=== PATIENT | male | born 1945 | race Caucasian/White ===

== ENCOUNTER 2016-08-22 08:32 | Inpatient (IN) | payer MEDICARE, OTHER ==
[~2016-08-22] VITALS: Ht 182.9 cm; Wt 112.9 kg
--- NOTE | ~2016-08-22 | CON ---
PATIENT'S NAME: KELSEY GILBERT [facility] AGE: 71 Y [address] ROOM: [id number] [place], [place] [address] LOCATION: GPCU ADMIT DATE: 08/22/2016 Consultation DISCHARGE DATE: FAMILY PHYSICIAN: JACQUI RUSSO MD ATTENDING PHYSICIAN: MANJIT ARCHER DATE OF CONSULTATION: 08/22/[address] Archer: Thank you for asking me to see Mr. Gilbert who is a 71-year-old male patient who has end-stage COPD on 4 to 5 L of oxygen per nasal cannula 20/01 and BiPAP at night. He has been evaluated in the past for lung transplant in 2011, at which time he apparently had a completely occluded LAD with retrograde collaterals which was not informed to him apparently. When it was found out that he had a completely occluded LAD, he had a chronic total occlusion, recanalization attempted by Dr. Xie in June. At that time, it was unsuccessful. The patient, however, has never had any chest pain, and there has been no clear evidence that he had a stress test done to see how much of the heart muscle is at risk. His shortness of breath whether it is made worse by his coronary artery disease or not is difficult to say as I do not have an LVEDP measurement in the cath report. The patient since then had felt reasonably well. He did not have any new chest pains. For the past month though he has been getting shortness of breath. For the last couple of days there has been some fever with increasing shortness of breath and this morning intermittently had some upper sternal pain radiating to the left shoulder lasting for few minutes at a time and was recurrent. It completely resolved and went away after he came to the emergency room. There was some nausea. After that he has been doing well. Transplant evaluation in 2011 revealed that he is not a great candidate for transplant because of the presence of esophageal cancer for which he has had radiation and chemotherapy and which is in remission. He unfortunately also had lymphoma which is also treated with radiation and chemotherapy and is in remission now as well. The patient currently has been in functional class 4. This has been getting progressively worse. He does sleep with BiPAP. There is some orthopnea. He denies any lightheadedness but has had syncope x2 secondary to coughing. He denies any palpitations and has had intermittent ankle swelling. The patient has history of hypertension and elevated cholesterol. He denies diabetes, tobacco abuse now, or family history of premature coronary artery disease. PATIENT'S NAME: KELSEY GILBERT [facility] AGE: 71 Y [address] ROOM: [id number] [place], [place] [address] [facility] ADMIT DATE: 08/22/2016 Consultation DISCHARGE DATE: FAMILY PHYSICIAN: JACQUI RUSSO MD ATTENDING PHYSICIAN: MANJIT ARCHER At home, the patient walks around without any walking aid. Outside, he gets around with a scooter. He is currently not on any regular exercise program since 2012 or so. He says it is just too hard to get to the bike to exercise for now. MEDICATIONS: His current list of medications are, 1. Albuterol sulfate 2.5 mg/3 mL q.4 hours. 2. Alprazolam 0.5 mg b.i.d. 3. Aspirin 81 mg once a day. 4. Rosuvastatin 10 mg a day. 5. Prednisone 10 mg 4 tablets a day. 6. Spiriva 1 puff daily. 7. Citalopram 20 mg a day. 8. Furosemide 40 mg 2 twice a day. 9. Lisinopril 20 mg half a tablet a day. 10. Hydroxyzine 25 mg t.i.d. p.r.n. 11. Oxycodone/acetaminophen 1 tablet q.6 hours p.r.n. 12. Ibuprofen 200 mg 4 tablets q.8 hours p.r.n. headache. 13. Multivitamin. 14. Acetazolamide 250 mg a day. 15. Amlodipine 2.5 mg a day. 16. Diphenhydramine 50 mg q.h.s. 17. Ibuprofen/diphenhydramine p.r.n. 18. Acetaminophen/diphenhydramine p.r.n. 19. Incruse Ellipta 1 puff once a day. ALLERGIES: NO KNOWN DRUG ALLERGIES. PAST MEDICAL HISTORY: 1. History of coronary artery disease as mentioned above. 2. Esophageal cancer. 3. Lymphoma. 4. Left lower extremity venous stasis ulcer. 5. End-stage COPD as mentioned earlier. 6. Deafness involving the right ear. SOCIAL HISTORY: The patient is . He denies abusing alcohol now. He quit smoking in 2010. His appetite and weight are stable. Sleep is poor. FAMILY HISTORY: No premature coronary artery disease. PATIENT'S NAME: KELSEY GILBERT [facility] AGE: 71 Y [address] ROOM: [id number] [place], [place] [address] [facility] ADMIT DATE: 08/22/2016 Consultation DISCHARGE DATE: FAMILY PHYSICIAN: JACQUI RUSSO MD ATTENDING PHYSICIAN: MANJIT ARCHER REVIEW OF SYSTEMS: Status post right lower extremity fem-pop bypass. Otherwise, review of systems similar to the above. PHYSICAL EXAMINATION: VITAL SIGNS: On examination, his blood pressure is 98/60; heart rate is in the 70s and 80s, regular; respirations 18; afebrile. He is on for 4 to 6 L of oxygen and his saturations are 94%. He is unfortunately also retaining carbon dioxide by his blood gases. HEENT: Normal. NECK: Supple. HEART: First and second heart sounds are regular. There are no added sounds or murmurs. CHEST: Clear to auscultation. ABDOMEN: Soft and obese. EXTREMITIES: Reveal trace edema. CENTRAL NERVOUS SYSTEM: Intact. ASSESSMENT: A 71-year-old male patient with end-stage COPD with chest pain which could be due to, 1. Pulmonary emboli which has been ruled out. 2. Possible esophageal pain. 3. Possibly secondary to his coronary artery disease. He may possibly be having some decrease in retrograde collateral flow secondary to hormonal changes which could be causing him symptoms. 4. It is also feasible that he became too hypoxic and that was responsible for his chest pains. The other possibility is that he has severe pulmonary hypertension that is causing his chest pains. RECOMMENDATION: 1. At this point, we will plan on checking his echocardiogram and then hold off his amlodipine given his low blood pressure. We will get an echocardiogram and increase his Crestor dose to 20 or 40. Given his coronary artery disease, he should be on a high intensity therapy. 2. Addition of nitrates may be helpful in improving collateral circulation. I am not sure how well the patient will tolerate the nitrates. Again, I appreciate this opportunity to participate in the care of Mr. Gilbert. STEVEN PURCELL MD PATIENT'S NAME: KELSEY GILBERT [facility] AGE: 71 Y [address] ROOM: [id number] [place] [id number] LOCATION: [facility] ADMIT DATE: 08/22/2016 Consultation DISCHARGE DATE: FAMILY PHYSICIAN: JACQUI RUSSO MD ATTENDING PHYSICIAN: MANJIT ARCHER/miguel /[id number] d: 08/23/16 0109 t: 09/03/16 1326, CONSULTATION REPORT
--- NOTE | ~2016-08-22 | ER ---
PATIENT'S NAME: KELSEY HERNÁNDEZ [facility] AGE: 71 Y [address] ROOM: [address] [place] [id number] [facility] ADMIT DATE: 08/22/2016 ER/Outpatient Report DISCHARGE DATE: FAMILY PHYSICIAN: JACQUI RUSSO MD ATTENDING PHYSICIAN: MANJIT ARCHER Time of Arrival: 0832 hours. Time of Evaluation: 0835 hours. IDENTIFICATION: A 71-year-old male. CHIEF COMPLAINT: Shortness of breath. HISTORY OF PRESENT ILLNESS: The patient is a 71-year-old male with a history of steroid dependent and O2 dependent COPD managed by Dr. Russo. The patient also has multiple other comorbid conditions including history of esophageal cancer, lymphoma, coronary artery disease with what sounds like severe stenosis of the LAD that has been unsuccessful as far as stenting per Dr. Xie and he is scheduled to go to [place] to try and have this evaluated. He also had a left lower extremity ulcer and bilateral lower extremity edema. He is not currently getting any chemotherapy and his cancer has been managed by Dr. Ramirez. Over the last several days, he has progressively become more short of breath. His normal O2 requirements of 2 to 3 L per nasal cannula have increased to 4 to 5 L. He does use BiPAP at night. He felt like he had a fever yesterday, although he did not take his temperature. He has a cough, it is nonproductive. He said he always has a cough, this really is unchanged, and he is unable to cough anything up. No other recent illnesses. He was hospitalized in May with acute on chronic hypoxic respiratory failure, COPD, acute on chronic diastolic congestive heart failure, and left leg cellulitis with ulcer. ALLERGIES: NO KNOWN DRUG ALLERGIES. CURRENT MEDICATIONS: He did not bring a medication list with him, but we do have a faxed record from Dr. Xie's office dated June 21 and at that visit medications included; 1. Acetazolamide 250 mg daily. 2. Albuterol nebulizer q.4 hours p.r.n. 3. Allopurinol 300 mg daily. 4. Alprazolam 0.25 mg p.r.n. 5. Aspirin 325 mg daily. PATIENT'S NAME: KELSEY HERNÁNDEZ [facility] AGE: 71 Y [address] ROOM: [id number] [place], [place] [address] LOC[facility]: [facility] ADMIT DATE: 08/22/2016 ER/Outpatient Report DISCHARGE DATE: FAMILY PHYSICIAN: JACQUI RUSSO MD ATTENDING PHYSICIAN: MANJIT ARCHER 6. Benadryl tablets p.r.n. 7. Citalopram 20 mg half tablet daily. 8. Crestor 10 mg daily. 9. Durezol ophthalmic emulsion. 10. Furosemide 40 mg q.a.m. and 20 mg at noon. He already has taken 40 mg today. 11. Hydroxyzine 10 mg p.r.n. 12. Ilevro ophthalmic suspension. 13. Lisinopril 20 mg daily. 14. Mucinex 600 mg b.i.d. p.r.n. 15. Oxycodone 5/325 one to two tablets every 4 to 6 hours as needed. 16. Prednisone 10 mg b.i.d. is what is prescribed, but I believe he told me he has taken 10 mg in the morning and 5 at h.s. 17. ProAir p.r.n. 18. Promethazine. 19. Codeine p.r.n. 20. Spiriva 18 mcg one capsule daily. 21. Symbicort 160/4.5 daily. 22. Vigamox ophthalmic drops. MEDICAL PROBLEMS: Hypertension; COPD, which is steroid and O2 dependent; esophageal carcinoma; atypical lymphocytosis; lung nodules; non-Hodgkin's lymphoma; completed radiation and chemotherapy for the esophageal cancer, managed by Dr. Ramirez; cor pulmonale; chronic diastolic congestive heart failure; history of tobacco abuse, quit in 2011; peripheral vascular disease status post bypass on his right leg in 2012; left leg ulcer; recurrent bronchitis; anxiety; hyperlipidemia; splenomegaly on CT; and history of a thyroid nodule. SOCIAL HISTORY: The patient is , retired, lives here in [place]. Tobacco use, quit in 2011. Alcohol use, denies. Drug use, denies. FAMILY HISTORY: Father secondary to lung cancer. REVIEW OF SYSTEMS: All systems reviewed and negative other than what is noted in the HPI. PHYSICAL EXAMINATION: VITAL SIGNS: Weight 114.2 kg, blood pressure 105/58, pulse 105, respirations 24, temperature 98.5, and saturations 91% on 5 L per nasal cannula. GENERAL: This is a 71-year-old male, who is tachypneic and working to breathe, can speak in just a few word sentences, fatigued, which is answering questions. PATIENT'S NAME: KELSEY HERNÁNDEZ [facility] AGE: 71 Y [address] ROOM: [id number] [place], [place] [address] LOCATION: [facility] ADMIT DATE: 08/22/2016 ER/Outpatient Report DISCHARGE DATE: FAMILY PHYSICIAN: JACQUI RUSSO MD ATTENDING PHYSICIAN: MANJIT ARCHER: Head: Normocephalic and atraumatic. Ears: TMs translucent both ears. Eyes: Pupils equal and reactive to light and accommodation. Extraocular movements intact. Nose: Mucosa pink. No lesions or drainage. Mouth: No lesions. Pharynx benign. NECK: Supple. No lymphadenopathy. No thyromegaly. No JVD. No carotid bruits. LUNGS: Diminished breath sounds throughout. He does have scattered wheezes and rhonchi. HEART: Sinus tachycardia. No murmur, rub, or gallop. ABDOMEN: Bowel sounds present, soft, nondistended, protuberant, and nontender. SKIN: [place], warm, and dry. NEURO: The patient is alert and oriented x4. Cranial nerves II through XII grossly intact. Motor strength 5/5 throughout. Sensation is intact to light touch. The patient does have 1+ lower extremity edema. No calf tenderness. He has chronic venous stasis changes bilaterally. LABORATORY DATA AND X-RAYS: ABGs; pH of 7.35, pCO2 of 50, pO2 of 162, bicarb 27.6, saturations 99%, and arterial lactate 1.3. D-dimer elevated at 1.83. Sodium 141, potassium 3.9, chloride 103, CO2 of 31, BUN 24, creatinine 1.2, and blood sugar 139. Liver enzymes normal. Magnesium 2.2. CPK 43, CK-MB 2.2, ProBNP 393. No previous pro-BNP for comparison. Hemoglobin 12.1, hematocrit 41.3, platelets 148, and white blood cell count 10.8. Previous platelet count was 199 on June 06. White blood cell differential 65% segs and 17% bands. INR 1.0. EKG normal sinus rhythm at 94 beats per minute, no acute ST elevation or depression, nonspecific ST-T wave changes, no previous EKG available at this time for comparison. Chest x-ray, 1 view, mild bibasilar infiltrate, mild increased pulmonary vascularity. CT scan, PE protocol, no PE, no acute cardiopulmonary abnormality, no significant adenopathy in the chest or abdomen. EMERGENCY DEPARTMENT COURSE: The patient's port was accessed. Labs were drawn to include blood cultures. Respiratory viral panel was also obtained, which was negative. Procalcitonin mildly elevated at 0.39. IV fluids were initiated at 100 mL/h. Rocephin 1 gram IV was given, Zithromax 500 mg IV for pneumonia, alprazolam 0.25 mg p.o. for anxiety, Solu-Medrol 125 IV for COPD, and Lasix 40 mg IV for acute congestive heart failure. The patient was placed on BiPAP at 24/5 per his home settings and given an albuterol aerosol treatment. He did not tolerate the BiPAP. His went home to get his own. He refused BiPAP after about 20 minutes here and was taken off. His saturation did remain greater than 90% on O2 per nasal cannula. IMPRESSION AND PLAN: 1. Acute on chronic hypoxic respiratory failure. ER treatment as noted PATIENT'S NAME: KELSEY HERNÁNDEZ [facility] AGE: 71 Y [address] ROOM: [id number] [place] [id number] LOC[facility]: [facility] ADMIT DATE: 08/22/2016 ER/Outpatient Report DISCHARGE DATE: FAMILY PHYSICIAN: JACQUI RUSSO MD ATTENDING PHYSICIAN: MANJIT ARCHER above. The patient will be admitted per Dr. Archer with Dr. Russo consulting. Dr. Russo's advanced practice provider, Ketty Baron, evaluated the patient in the emergency room as well as Dr. Archer. 2. Bibasilar pneumonia. IV antibiotics initiated in the emergency room after cultures were obtained. Respiratory viral panel is negative and the patient will be admitted per Dr. Archer. 3. Bilateral lower extremity edema. 4. Acute on chronic diastolic congestive heart failure. The patient was given 40 mg of IV Lasix. 5. Anxiety. The patient had increasing anxiety here in the ER and was given 0.25 mg p.o. alprazolam. The patient did remain hemodynamically stable throughout his stay here in the emergency room and was discharged to U telemetry at 10:50 a.m. Heart rate at that time 88, O2 saturation 92%, blood pressures ranged from 93/52 to 109/56, and 35 minutes of critical care was provided with this patient. MD ELIEZER BECKWITH/miguel /[id number] d: 08/22/160 t: 08/27/16 0653, OUTPATIENT REPORT
--- NOTE | ~2016-08-22 | CON ---
PATIENT'S NAME: KELSEY HERNÁNDEZ [facility] AGE: 71 Y [address] ROOM: [address] [place] [id number] LOCATION: GPCU ADMIT DATE: 08/23/2016 Consultation DISCHARGE DATE: 08/28/2016 FAMILY PHYSICIAN: Adam Alba MD ATTENDING PHYSICIAN: Kayleigh Alonzo DATE OF CONSULTATION: 08/22/2016 INDICATIONS: Acute on chronic respiratory failure. HISTORY OF PRESENT ILLNESS: This is a 71-year-old male, well known to Dr. Alba, who called this morning through the Answering Service to report increased shortness of breath and fever starting last night. He was sent to the Emergency Room for further evaluation. In the ER Emergency Room, he required BiPAP for about 20 minutes or so, and is now on 4 L nasal cannula at 88%. He reports that he has had progressive shortness of breath over the last three to four weeks, and noted fevers up to 101.8 last night. He denies any chest pain. He reports PND and orthopnea lately. He also has had lower extremities edema; however, feels this has improved some. He denies any lightheadedness. He recently got his [place] boots off, and has wraps on them now. PAST MEDICAL HISTORY: Includes 1. Esophageal cancer, status post radiation and chemotherapy. 2. History of lymphoma. 3. History of lower extremities venous stasis ulcer. 4. COPD chronic obstructive pulmonary disease. 5. Chronic respiratory failure. He normally uses BiPAP at night. 6. CAD coronary artery disease. 7. Cor pulmonale. 8. Chronic systolic heart failure. ALLERGIES: SEE MAR. MEDICATIONS: See MAR. FAMILY HISTORY: PATIENT'S NAME: KELSEY HERNÁNDEZ [facility] AGE: 71 Y [address] ROOM: [id number] [place] [id number] LOCATION: GPCU ADMIT DATE: 08/23/2016 Consultation DISCHARGE DATE: 08/28/2016 FAMILY PHYSICIAN: Adam Alba MD ATTENDING PHYSICIAN: Kayleigh Alonzo The patient denies any history of heart disease or lung disease. SOCIAL HISTORY: Marital Status: The patient is , and lives with his . Habits: He denies alcohol use. He was a former heavy smoker, and quit in 2010. REVIEW OF SYSTEMS: A twelve-point review of systems is negative, except for what is noted in the HPI history of present illness. PHYSICAL EXAMINATION: VITAL SIGNS: Blood pressure was 98/42, pulse was 83, respirations were 22, and temperature was 98.3. He is 88% on 4 L nasal cannula. GENERAL: This is a 71-year-old, well developed, well nourished, and overweight male, who is alert and oriented x3, and appears in no acute distress at the time of the exam. HEENT: Head: Normocephalic and atraumatic. Eyes: Clear. NECK: Supple. No adenopathy. No carotid bruits or JVD jugular venous distention. LUNGS: Decreased breath sounds throughout with a few wheezes, but no rales. HEART: Regular rate and rhythm without murmur, gallop, or rub. ABDOMEN: Soft and nontender and obese. Bowel sounds x4. EXTREMITIES: No cyanosis or clubbing. A +1 lower extremities edema. DIAGNOSTIC DATA: Includes ABG arterial blood gases, which showed a pH of 7.35, pCO2 of 50, pO2 of 162, bicarbonate of 27.6, and lactate of 1.3. Troponin was negative. ProBNP is 393. Sodium was 141, potassium was 3.9, BUN was 24, creatinine was 1.2, and CO2 was 31. WBC of 10.8, hemoglobin of 12.1, hematocrit of 41.3, and platelets of 148. D-dimer was 1.83. Procalcitonin is 0.39. ASSESSMENT: 1. Acute on chronic respiratory failure due to chronic obstructive pulmonary PATIENT'S NAME: KELSEY HERNÁNDEZ [facility] AGE: 71 Y [address] ROOM: [address] [place], [place] [address] LOCATION: GPCU ADMIT DATE: 08/23/2016 Consultation DISCHARGE DATE: 08/28/2016 FAMILY PHYSICIAN: Adam Alba MD ATTENDING PHYSICIAN: Kayleigh Alonzo disease exacerbation. Overall stable respiratory status with nocturnal BiPAP chronically. 2. Chronic obstructive pulmonary disease exacerbation, moderate. Continue IV steroids and antibiotics. 3. Cor pulmonale, slightly decompensated with fluid overload. 4. Coronary artery disease with difficult to treat LAD left anterior descending artery lesion. PLAN: We will continue with IV steroids and antibiotics for now. We will schedule bronchodilator treatments every four hours as well as p.r.n., and follow up on culture results. Would suggest IV diuretics, and follow up on renal panel. He can continue with his own BiPAP machine at his home settings at night as well as as-needed during the day for increased shortness of breath or work of breathing. Thank you for the consult and opportunity to participate in patient's care. LAYLA HARRIS APRN FOR MD NINA HERNANDEZ/modl /[id number] d: 09/09/162104 t: 09/10/16 1631, CONSULTATION REPORT
--- NOTE | ~2016-08-22 | DS ---
PATIENT'S NAME: KELSEY HERNÁNDEZ [facility] AGE: 71 Y [address] ROOM: G6337 [place], [place] [address] LOCATION: GPCU ADMIT DATE: 08/23/2016 Discharge Summary DISCHARGE DATE: 08/28/2016 FAMILY PHYSICIAN: Adam Alba MD ATTENDING PHYSICIAN: Kayleigh Alonzo FINAL DIAGNOSES: 1. Hjnsn-bu-xtuzore hypercapnic hypoxic respiratory failure. 2. New-onset atrial fibrillation, vgcpn-yg-ztgwibl diastolic congestive heart failure. 3. Acute kidney injury, resolved. 4. Stage III chronic kidney disease. 5. Anemia of chronic disease. 6. Coronary artery disease. HISTORY OF PRESENT ILLNESS: For details of admission, please see the history and physical dictated by Dr. Mcmahan and consultation provided by Dr. Alba. In short, the patient presented to the hospital with worsening of his chronic respiratory failure. He was admitted to PCU. LABORATORY DATA: On admit; white blood cell count 10.8, hemoglobin 12.1, hematocrit 41.3, platelet count 148. Most prior to discharge; his hemoglobin was 10.6, hematocrit 35.7, platelet count 181. On admission, he had a left shift with 17% bands. D-dimer on admission was 1.83. His cardiac enzymes were normal. On admission and on the , his cardiac enzymes did bump to 0.08 and 0.083. ABGs on admission; his pH was 7.35, pCO2 of 50, pO2 of 162. Later in the day, on , his pH was 7.22, pCO2 of 100, pO2 of 105. On admission, sodium 141, potassium 3.9, chloride 103, CO2 of 31, BUN 24, creatinine 1.2. His creatinine got as high as 2.1 on , but then most prior to discharge was 1.1. Respiratory panel was negative. Procalcitonin on admission was less than 0.39. Blood cultures were negative. Legionella urine antigen and strep pneumoniae urine antigen were negative. RADIOLOGY STUDIES: On admission, had bibasilar infiltrates and atelectasis. KUB of his abdomen was nonspecific. CTA of his chest done on 08/22/2016 did not show any acute PE. He did not have an acute cardiopulmonary abnormality. Echocardiogram done on 08/23/2016 showed that he had an ejection fraction of 60%, he had moderate concentric left ventricular hypertrophy, has mildly dilated left atrium, and did have tricuspid regurg. His pulmonary pressure was 36 mmHg. HOSPITAL COURSE: The patient was admitted with a diagnosis of acute-on- chronic respiratory failure, was seen in consultation by the Pulmonary Service. He was worked up for the etiology. Blood cultures and respiratory panel were obtained. He was put on BiPAP to help the respiratory failure. He PATIENT'S NAME: KELSEY HERNÁNDEZ [facility] AGE: 71 Y [address] ROOM: G6337 [place], [place] [address] LOCATION: GPCU ADMIT DATE: 08/23/2016 Discharge Summary DISCHARGE DATE: 08/28/2016 FAMILY PHYSICIAN: Adam Alba MD ATTENDING PHYSICIAN: Kayleigh Alonzo was given Lovenox for DVT prophylaxis. He was placed on IV steroids for what was felt to be a COPD exacerbation. It was felt that he did have cor pulmonale, this was monitored closely. He felt significantly better the next day. He did develop atrial fibrillation and Dr. Peterson did see him from a Cardiology standpoint and were able to wean his steroids. Dr. Peterson felt that we needed to try and diurese him and gave him albumin. He had been started on antibiotics, this was limited to Levaquin for a total of five days. His creatinine did jump, so his lisinopril and creatinine were held. It was felt that this was due to him receiving contrast for the CT scan that was done on admission. He did get started on oral Cardizem to help with the atrial fibrillation. He was then put on a taper of prednisone. Dr. Rivera did see him and felt that we should place him on sotalol and that he needed anticoagulation with Coumadin. He did continue to improve. He was placed on a fluid restriction. There was concern about his respiratory failure. He was given a dose of Diamox and given Lasix. Dr. Alba did feel that we needed to make sure that we could get a home BiPAP AVAPS machine. He was about ready to go home but did get into some trouble with CO2 retention and was placed back on the BiPAP. Through Dr. Alba, we were able to get Trilogy device for AVAPS for him to have at home. We did hold him in the hospital until we made sure that this was available. In the mean time, we did work on bringing his INR into a therapeutic range. It was felt that he was stable for discharge and was discharged to home with the following instructions. DISCHARGE INSTRUCTIONS: He is to follow up with Dr. Xie, his equipment maintenance engineer, on Friday09/03/2016 at 2 p.m.; Dr. Frandy Sawyer, his primary provider, on 09/06/2016 at 2 p.m.; and to see Dr. Alba on 09/10/2016. DISCHARGE MEDICATIONS: 1. Albuterol nebulizer every 4 hours as needed. 2. Xanax 0.5 mg twice daily. 3. Ecotrin 81 mg daily. 4. Lipitor 10 mg daily. 5. Prednisone 20 mg daily for 3 days, then 10 mg daily for 4 days, then stop. 6. Spiriva 1 puff inhaled daily. 7. Celexa 20 mg daily. 8. Lasix 80 mg twice daily. 9. Lisinopril 5 mg daily. 10. Hydroxyzine 25 mg 3 times daily. 11. Percocet 5/325 one every 6 hours as needed. 12. Multivitamin daily. 13. Diamox 500 mg daily. 14. Advil PM 2 tablets as needed for insomnia. 15. Incruse Ellipta one puff daily. 16. Diltiazem extended release 120 mg daily. PATIENT'S NAME: KELSEY HERNÁNDEZ [facility] AGE: 71 Y [address] ROOM: [place] [address] [facility] ADMIT DATE: 08/23/2016 Discharge Summary DISCHARGE DATE: 08/28/2016 FAMILY PHYSICIAN: Adam Alba MD ATTENDING PHYSICIAN: Kayleigh Alonzo 17. Guaifenesin 1200 mg twice daily. 18. Isordil 5 mg 3 times daily. 19. Sotalol 40 mg twice daily. 20. Coumadin 5 mg daily. PROGNOSIS: Overall prognosis at discharge was fair. The patient and his did voice understanding. KAYLEIGH ALONZO MD LAW/modl /[id number] d: 09/24/163 t: 09/26/16 1613, DISCHARGE SUMMARY
--- NOTE | ~2016-08-22 | ECHO ---
Transthoracic Echocardiography Report (TTE) Demographics Patient Name KELSEY HERNÁNDEZ Date of Study 08/23/2016 Patient Number [id number] Visit Number [id number] Date of 1945 Room Number G6337 Gender Male Number Age 71 year(s) Referring Kristen Amezcua Carrier Blower Cassy Juarez MD RDCS Physician Interpreting Kristen Amezcua Repack Room Worker Physician Supervising Ordering MD/MLP Physician Nurse Stress Body Shop Manager Conclusions Summary Technically difficult exam. The estimated left ventricular ejection fraction is 60% with normal WM and internal dimensions.Moderate concentric left ventricular hypertrophy. The left atrium is mildly dilated. Mild mitral regurgitation by color Doppler. RHCs are mildly dilated. Increased RA pressures. RV apex is hypokinetic. Mild tricuspid regurgitation by color Doppler.There is mild pulmonary hypertension. The pulmonary pressure (RVSP) is 36 mmHg. Procedure Type of Study TTE procedure:2D Echocardiogram. Procedure Date Date: 08/23/2016 Start: 09:32 AM Study Location: Inpatient Portable Indications:Chest pain. Appropriate Use Criteria: 9 Patient Status: Routine HR: 95 bpm BP: 96/51 mmHg M-Mode/2D Measurements LV Diastolic Dimension: 5.57 cm LV Systolic Dimension: 3.61 cm LV Septum Diastolic: 1.36 cm LV PW Diastolic: 1.39 cm AO Root Dimension: 2.2 cm Cardiac Output: 9.16 l/min AV Cusp Separation: 1.9 cm RV Diastolic Dimension: 3.88 cm LA volume: 87 ml LVOT: 2 cm RV Base: 4.54 cm LVOT VTI: 30.7 cm RV Mid: 2.95 cm LV Stroke volume: 96.4 ml TAPSE: 2.08 cm TDI-S': 16 cm/s Doppler Measurements AV Peak Velocity: 1.91 m/s MV Peak E-Wave: 1.23 m/s AV Peak Gradient: 14.59 mmHg MV Peak A-Wave: 1.01 m/s AV Mean Gradient: 8 mmHg MV E/A Ratio: 1.22 LVOT Peak Velocity: 1.8 m/s MV P1/2t: 51 msec TR Gradient:26.01 mmHg PV Peak Velocity: 1.17 m/s Estimated RAP:10 mmHg PV Peak Gradient: 5.48 mmHg Estimated RVSP: 36 mmHg Estimated PASP: 36.01 mmHg E' Septal Velocity: 0.06 m/s A' Septal Velocity: 0.08 m/s E' Lateral Velocity: 0.08 m/s A' Lateral Velocity: 0.14 m/s Findings Left Ventricle Moderate concentric left ventricular hypertrophy with normal internal dimensions,EF and WM. Right Ventricle Mildly dilated right ventricle.RV apex is hypokinetic. Left Atrium The left atrium is mildly dilated. Right Atrium Normal right atrial size. Increase RA pressures. Mitral Valve Mild mitral regurgitation by color Doppler. Aortic Valve Normal aortic valve structure and function. Tricuspid Valve Mild tricuspid regurgitation by color Doppler. There is mild pulmonary hypertension. The pulmonary pressure (RVSP) is 36 mmHg. Pulmonic Valve Normal pulmonic valve structure and function. Pericardial Effusion No evidence of pericardial effusion. Miscellaneous Visualized portions of the aortic root and ascending aorta appear normal in size. Pleural Effusion No evidence of pleural effusion. Contractility Score LV regional wall motion:(0-Non visualized 1-Normal 2-Hypokinesis 3-Akinesis 4-Dyskinesis 5-Aneurysm) Signature dtt: Goldie Peterson dtd: 08/23/16 0932 Physician Self Edit
--- NOTE | ~2016-08-22 | HP ---
PATIENT'S NAME: KELSEY HERNÁNDEZ [facility] AGE: 71 Y [address] ROOM: [address] [place], [place] [address] [facility] ADMIT DATE: 08/22/2016 History & Physical DISCHARGE DATE: FAMILY PHYSICIAN: JACQUI RUSSO MD ATTENDING PHYSICIAN: MANJIT ARCHER DATE OF SERVICE: CHIEF COMPLAINT: Worsening shortness of breath on exertion and slightly worsening of chronic dry cough and intermittent chest pain at rest. HISTORY OF PRESENT ILLNESS: This is a 71-year-old male who says that roughly about 3 or 4 weeks ago, he has been experiencing a little bit worsening of his chronic usual dry cough and more worsening of his usual exertional dyspnea. For the last 3 days, he has also been experiencing substernal chest pain about 4/10 in intensity, but only occurs at rest. The chest pain is kind of a pressure-like pain and is on and off, only lasts for a few seconds. He will get this kind of chest pain about 3 or 4 times a day for the last 3 days. He has never experienced chest pain before according to the patient. This morning, he also has been feeling some chills and generalized body aches. He has also been having some loose stools since yesterday about 3 episodes of nonbloody and today he has had about 2 episodes of loose stools also nonbloody. At baseline, he has COPD. He uses 4 to 5 liters of oxygen nasal cannula 24/7 and he also uses a BiPAP every night with a setting of 24/4 according to the patient. Chronically, he has exertional dyspnea from his COPD and also chronically has dry cough almost on a daily basis. He denies any recent sick contact or any recent trauma or any travel outside the country. He also denies any palpitation or diaphoresis or syncope or presyncope or nausea or vomiting. REVIEW OF SYSTEMS: As mentioned in the history of present illness. All other system review negative except those mentioned in history of present illness. PAST MEDICAL HISTORY: 1. 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 2. History of coronary artery disease with a 100% occlusion of the LAD according to the patient's daughter and currently being followed by Dr. Xie at [facility]. He has seen Dr. Xie 3 times and 1st time was a consultation where he had a recent echo performed in PATIENT'S NAME: KELSEY HERNÁNDEZ [facility] AGE: 71 Y [address] ROOM: [address] [place], [place] [address] [facility] ADMIT DATE: 08/22/2016 History & Physical DISCHARGE DATE: FAMILY PHYSICIAN: JACQUI RUSSO MD ATTENDING PHYSICIAN: MANJIT ARCHER June 2016 according to the patient at [facility]. He also had 2 cardiac cath attempts back in June and July 2016. At that time, the LAD was 100% occluded and could not do any stents and also could not do any CABG given the patient's underlying poor lung function. The patient is scheduled in the future to see someone in [place], but appointment has not been made yet. 3. History of esophageal cancer status post radiation and chemotherapy and is already cured. Because of the esophageal cancer, the patient is not considered a lung transplant candidate according to the patient and the patient's daughter. 4. History of lymphoma followed by Dr. Ramirez status post chemotherapy and currently is in remission. 5. Left lower extremity venous stasis ulcer, already cured. 6. COPD, on home oxygen 4 to 5 liters nasal cannula 24/7 and at home also uses BiPAP every night, setting 24/4 according to the patient. ALLERGIES: NO KNOWN DRUG ALLERGIES. HOME MEDICATIONS: Currently has been reconciled. SOCIAL HISTORY: The patient was a heavy former cigarette smoker and he quit in 2010. No alcohol. No illegal drug use. FAMILY HISTORY: Father from lung cancer at an advanced age. The patient could not really tell me about his mother's medical problem because he could not remember. PAST SURGICAL HISTORY: Status post bypass of the right lower extremity of the femoral popliteal vein in the past. PHYSICAL EXAMINATION: VITAL SIGNS: At the time of my dictation, temperature 98.3, heart rate 83, respirations 23, blood pressure 120/80, and saturation 91% on 5 liters nasal cannula and pain is 0/10. GENERAL APPEARANCE : Alert and oriented x3. A bit drowsy currently. The patient is a bit drowsy on my examination given that the patient just took Xanax 0.25 mg p.o. x1, but he is still alert and oriented x3. Followed commands and answered questions appropriately. HEENT: Pupils equally round and reactive to light. Extraocular muscles intact. Anicteric sclerae. Nasal turbinates are normal bilaterally. Moist PATIENT'S NAME: KELSEY HERNÁNDEZ [facility] AGE: 71 Y [address] ROOM: [address] [place], [place] [address] [facility] ADMIT DATE: 08/22/2016 History & Physical DISCHARGE DATE: FAMILY PHYSICIAN: JACQUI RUSSO MD ATTENDING PHYSICIAN: MANJIT ARCHER oral mucosa. No oral thrush. No oropharyngeal exudate or erythema. NECK: No JVD. No neck stiffness. No cervical lymphadenopathy. CARDIOVASCULAR: Regular rate and rhythm. Normal S1, S2. No murmur. No rubs. No gallops. RESPIRATORY: Diffuse wheezing with decreased breath sounds diffusely. ABDOMEN: Obese, soft, nontender, nondistended, and normal bowel sounds. No hepatosplenomegaly. EXTREMITIES: He has trace pitting edema in bilateral lower extremities. The left lower extremity slightly more than the right lower extremity. NEUROLOGIC: Grossly nonfocal. SKIN: No ulcer, no rash, no cyanosis. No open sores in bilateral lower extremities. MUSCULOSKELETAL: No joint pain. No muscle pain. Range of motion intact. LABORATORY DATA: ABG performed on 5 liters oxygen nasal cannula showed pH 7.35, pCO2 of 50, PO2 of 162, bicarbonate 107.6, and satting at 99%. Lactic acid 1.3. Troponin less than 0.04. CPK 43, proBNP 393, white blood cell 10.8, hemoglobin 12.1, hematocrit 41.3, MCV 94.1. Platelet 148. Glucose 139, BUN 24, creatinine 1.2. Sodium 141, potassium 3.9, chloride 103, CO2 of 31, calcium 8.4. Total protein 6.5, albumin 3.4, AST 21, ALT 28, alkaline phosphatase 79, total bilirubin 0.3, magnesium 2.2. GFR more than 60. Anion gap 10.9. CK-MB 2.2. Procalcitonin 0.39. D-dimer 1.83. IMAGING STUDIES: 1. Chest x-ray on admission showed mild bibasilar infiltrate or atelectasis. 2. CT pulmonary angiogram on admission showed no pulmonary embolism. No acute cardiopulmonary process. At this time, there is no significant adenopathy in the chest or abdomen. 3. EKG on admission shows sinus arrhythmia with a heart rate of 93 beats per minutes. No acute ischemic findings. Q-wave in the inferior leads. ASSESSMENT AND PLAN: 1. Acute on chronic hypoxemic respiratory failure likely secondary to bronchitis: I will get an influenza nasal antigen swab and also respiratory viral panel. At the moment, it does not seem to be pneumonia, but as the patient has chronic obstructive pulmonary disease exacerbation, I will go ahead and treat him with antibiotics as part of the chronic obstructive pulmonary disease exacerbation instead of using azithromycin given that I realized that in one of the history and physical back in November 2015, there was a concern about azithromycin-induced hearing loss. Therefore, I will give him IV Levaquin instead. He will be getting nebulization with DuoNeb q.4 hours while awake for 24 hours, then titrate by RT for RSS. Also getting Atrovent nebulization q.2 hours p.r.n. for shortness PATIENT'S NAME: KELSEY HERNÁNDEZ [facility] AGE: 71 Y [address] ROOM: [address] [address] [facility] ADMIT DATE: 08/22/2016 History & Physical DISCHARGE DATE: FAMILY PHYSICIAN: JACQUI RUSSO MD ATTENDING PHYSICIAN: MANJIT ARCHER of breath or wheezing. I will also keep him on oxygen nasal cannula, titrate for saturation 90% to 94%. He will be getting IV Solu-Medrol 60 mg b.i.d. starting tomorrow. Today, he already got IV Solu-Medrol 125 mg in the ED. He will also be using BiPAP at night with a home setting / according to the patient. Also, check a sputum for culture and Gram stain if his sputum ever turns into productive cough. Check a urine antigen for Legionella and pneumococcal. Incentive spirometry and flutter valve used 10 times per hour while awake. Dry cough will be treated with Mucinex Extended Release 1200 mg p.o. b.i.d. I will repeat labs in the morning. Consult Pulmonology, is Dr. Russo's patient. Further plan depends on clinical course. 3. Regarding his chest pain: Seems atypical. His presentation is atypical, but given the patient does have a significant cardiac history with 100% occlusion in the LAD according to the patient's daughter with 2 unsuccessful caths in June and July 2016 at the [facility] due to the total occlusion of the LAD and cannot get the CABG due to his poor lung functional status, I will consult Cardiology to be in the loop. I will get the medical records including the most recent office visit, cardiac cath report, transthoracic echo report from [facility]. The patient was followed by Dr. Xie at the [facility]. I will cycle cardiac enzymes every 6 hours. Continue on the telemetry monitoring. I will not repeat echo given that the patient's daughter told me that he had an echo just last month this year. Further plan per Cardiology and close monitoring. Currently, the patient is chest pain free. EKG is not ischemic. 4. Regarding loose stool, we will check a stool study for Clostridium difficile. I will also get a KUB given the patient said that his abdomen is slightly distended, a little bit more than his usual. 5. DVT prophylaxis. He will be on Lovenox subcutaneous. Time spent on the day of admission in care 40 minutes including chart review, examining the patient, interviewing the patient, addressing all the questions concerned for the patient and patient's daughter. I also went over the plan of care in detail with the patient and patient's daughter. MD JUANCARLOS RECIO/miguel /[id number] D: [id number] T: [id number] HISTORY & PHYSICAL
[~2016-08-22 08:32] MED LIST: ADVIL200 MG PO; ALBUTEROL2.5 MG/31 INH; ASPIRIN LO-DOSE81 MG PO; ATARAX25 MG PO; BENADRYL25 MG PO; CELEXA20 MG PO; CRESTOR10 MG PO; DELTASONE10 MG PO; DIAMOX250 MG PO; LASIX20 MG PO; LASIX40 MG PO; LEVAQUIN 750 M750 MG PO; LEVAQUIN500 MG PO; LEVAQUIN750 MG PO; MUCINEX600 MG PO; NORVASC2.5 MG PO; OXYCODONE-ACET1 EAC1 PO; PERCOCET 7.5-31 EACH PO; PRINIVIL (ZESTRI5 MG PO; PROAIR HFA8.5 GM; PROAIR HFA8.5 GM INH; PROMETHAZINE-C240 ML PO; SPIRIVA RESPIMAT4 G1 INH; SYMBICORT 16010.2 GM INH; THERA-VITE W/ B1 TAB PO; TYLENOL325 MG PO; VITAMIN D1000 UNIT PO; XANAX0.25 MG PO; ZYLOPRIM300 MG
[2016-08-22 09:07] LABS: LACTATE 1.3 mEq/L (0.50-1.60)
[2016-08-22 09:09] LABS: HEMATOCRIT 41.3 % (37.0-53.0); HEMOGLOBIN 12.1 g/dL (11.0-16.0); MCH 27.6 pg (27.0-34.0); MCHC 29.3 gm/dL (32.0-36.5); MCV 94.1 fl (83.0-98.0); MPV 8.9 fl (9.4-12.4); RBC 4.39 M/uL (3.50-5.50); RDW-CV 14.9 % (11.9-14.6); WBC 10.8 K/uL (4.0-11.0)
[2016-08-22 09:15] LABS: PROTIME 10.5 SECONDS (9.6-11.1); PTT 23 SECONDS (25-32)
[2016-08-22 09:20] LABS: PLATELET COUNT 148 K/uL (150-450)
[2016-08-22 09:32] LABS: BICARBONATE 27.6 mmol/L (18.0-23.0); PO2 162 mmHg (80-90)
[2016-08-22 09:33] LABS: ALBUMIN 3.4 gm/dL (3.5-5.0); ALK PHOS 79 IU/L (33-138); ALT 28 IU/L (12-78); ANION GAP 10.9 (10.0-19.0); AST 21 IU/L (10-40); BLOOD UREA NITROGEN 24 mg/dL (6-24); CALCIUM 8.4 mg/dL (8.5-10.5); CHLORIDE 103 mMol/L (96-110); CO2 31 mMol/L (22-32); CPK 43 IU/L (35-332); CREATININE 1.2 mg/dL (0.6-1.3); ESTIMATED GFR (MDRD EQUATION) 60; MAGNESIUM 2.2 mg/dL (1.3-2.6); POTASSIUM 3.9 mMol/L (3.7-5.1); SODIUM 141 mMol/L (135-145); TOTAL PROTEIN 6.5 g/dL (6.0-8.4)
[2016-08-22 09:35] LABS: PCO2 50 mmHg (35-45)
[2016-08-22 09:37] LABS: TOTAL BILIRUBIN 0.3 mg/dL (0.0-1.5)
[2016-08-22 09:55] LABS: ABSOLUTE NEUTROPHIL CT (ANC) 8.9 K/uL (1.4-9.0); BANDED NEUTROPHIL # 1.8 K/uL (0.0-0.1); BANDED NEUTROPHILS % 17 %; LYMPHOCYTE # 0.6 K/uL (0.8-4.0); LYMPHOCYTE % 6 %; SEGMENTED NEUTROPHIL % 65 %
--- NOTE | 2016-08-22 11:45 | NUR ---
PT is 71 y/o male admit for pneumonia,COPD exacerbation for hospitalist. Pt oriented x3. Drowsy at times currently due to anti-anxiety med given in ED. Pt has severe sleep apnea,wears bipap when napping and at night. Pt brought his own bipap. No allergies. Yellow bracelet on. Hx htn,hypercholest,edema,PVD, PAD,COPD,continuous O2 at 4-5L,esophageal ca,Non Hodgkins lymphoma,pneumonia, bronchitis,SOB. Resides at home with his . Daughter at bedside and states pt has had gradual increasing SOB and during the night developed fever,chills, and body aches. Came to ED around 0830.
[2016-08-22] MEDS ORDERED: BENADRYL ALLERG25 MG PO (12:28)
[2016-08-22] MEDS ORDERED: TYLENOL PM EX-1 EACH PO (12:29)
[2016-08-22] MEDS ORDERED: INCRUSE ELLI62.5 MCG INH (12:29)
[2016-08-22] MEDS ORDERED: ADVIL PM CAPLE1 EACH PO (12:29)
[2016-08-22 16:36] LABS: CPK 35 IU/L (35-332)
--- NOTE | 2016-08-22 17:12 | NUR ---
Significant Event: PT A/O X3, VSS, PT ON 5 L NC ON ARRIVIAL FROM ED. PT PLACED ON HOME BIPAP PER ORDERS, FINISHED IV ANTIBIOTICS FROM ED, UA SENT TO LAB, ORDERS STILL FOR SPUTUM AND STOOL SAMPLE. CONSULT DR. Rodriguez FOR CHEST PAIN, CONSULT DR. RUSSO FOR RESP- SOB/INCREASE NEED FOR O2. PT CHANGED TO HOSPITAL BIPAP. FAMILY AT BEDSIDE OFF/ON THIS TOD. CALL LIGHT AND PERSONAL ITEMS IN REACH, QUESTIONS/CONCERNS ADDRESSED THIS TOD. Follow up: TITRATE O2 KEEP STATS 90-94%, SPUTUM SAMPLE, STOOL SAMPLE. CONTINUE TO MONITER, CONTINUE PER PLAN OF CARE
[2016-08-22 21:25] LABS: CPK 41 IU/L (35-332)
[2016-08-23 04:03] LABS: HEMATOCRIT 35.3 % (37.0-53.0); HEMOGLOBIN 10.2 g/dL (11.0-16.0); MCH 27.7 pg (27.0-34.0); MCHC 28.9 gm/dL (32.0-36.5); MCV 95.9 fl (83.0-98.0); MPV 8.9 fl (9.4-12.4); RBC 3.68 M/uL (3.50-5.50); WBC 10.5 K/uL (4.0-11.0)
[2016-08-23 04:06] LABS: ANION GAP 13.8 (10.0-19.0); CALCIUM 8.6 mg/dL (8.5-10.5); MAGNESIUM 2.5 mg/dL (1.3-2.6); PHOSPHORUS 5.1 mg/dL (2.5-4.9); POTASSIUM 4.8 mMol/L (3.7-5.1)
--- NOTE | 2016-08-23 04:06 | NUR ---
Significant Event: Patient A/Ox3. VSS on Bipap at 40% Fio2. Up 1-assist to bathroom. Portacath not used for blood draws due to lack of blood return. Cardiac enzymes negative at 2100 last night. Lungs coarse bilaterally. No BM this shift. Follow up: C-diff sample still needed. Continue POC
[2016-08-23 04:09] LABS: CREATININE 2.1 mg/dL (0.6-1.3)
--- NOTE | 2016-08-23 10:52 | NUR ---
Introduced self/role to patient. He lives at home with his Lydia here in [place]. They have a 2 bed room home. Lydia recently had her knee redone so they have all the DME needed. He stated he just purchased a electric scooter to help with his mobility. He had cancer treatment a few years ago and never go his energy back. He just needs to find a way to get it into his car. I asked him if he had ever used or talked to [employer]? He said no. Printed off their contact information and information from their website and gave to him. He also mentioned needed maybe a set lift for his steps which [employer] might be able to assists with also. Then we started to talk about life in general and he mentioned that he use to be able to have a "pitty constitution party" for a few minutes each day but then move on. However the moving on part has become more difficult. I asked if he had every talked to a councelor? He said yes he has then at his finger tips. Asked about support groups? He stated he has never done that and really doesn't like to share his feelings. I mentioned pet therapy, he stated he borrows his daughter dog when they need a pet fix. I asked about antidepresants? He stated he does some of that. We talked about support system besides his . His one daughter lives in town and has 4 children. Other daughter does not live close. He mentioned friends. Offered support and encouragement. Wrote my name on his marker board and gave him the [employer] info. No other discharge needs identified.
--- NOTE | 2016-08-23 17:07 | NUR ---
Significant Event: PT A/O X3, VSS, BP MEDS HELD PER ORDER - HYPOTENSIVE, AND CREAT LAB. ORDERS FOR BP IN BOTH UPPER EXTREMITIES. PT TOLERATE NC 6L THIS TOD. PT PLACE BACK ON HOME BIPAP PER REQUEST AT 1700, MAINTAIN STATS 90-94%. PT AMBULATE IN VALDEZ X1 LAP - TOLERATE WELL. ALBUMIN GIVEN X2 BOTTLES. CALL LIGHT AND PERSONAL ITEMS IN REACH. FAMILY AT BEDSIDE OFF/ON THIS TOD. QUESTIONS/CONCERNS ADDRESSED THIS TOD. Follow up: HOME BIPAP PRN, IF PT NEEDS > 8L O2, THEN HOSPITAL BIPAP/AVAP MODE, AM LABS, BP IN BUE, CONTINUE TO [facility], CONTINUE PER PLAN OF CARE
[2016-08-24 00:32] LABS: ANION GAP 11.7 (10.0-19.0); CALCIUM 9.1 mg/dL (8.5-10.5); CREATININE 1.9 mg/dL (0.6-1.3); POTASSIUM 4.7 mMol/L (3.7-5.1)
[2016-08-24 00:41] LABS: MAGNESIUM 2.8 mg/dL (1.3-2.6)
--- NOTE | 2016-08-24 04:09 | NUR ---
Significant Event: Patient a/ox3. VSS on 6L or Bipap at 35%. Patient did flip into a-fib around 2300. EKG showed A-fib with RVR, but patient converted back to SR on his own. PO Cardizem Q6H started. HR now 90s. No complaints of pain. Follow up: Continue to monitor cardiac status. Continue POC
[2016-08-24 05:46] LABS: ALBUMIN 3.2 gm/dL (3.5-5.0); ANION GAP 13.7 (10.0-19.0); CALCIUM 9.1 mg/dL (8.5-10.5); CREATININE 1.5 mg/dL (0.6-1.3); PHOSPHORUS 4.8 mg/dL (2.5-4.9); POTASSIUM 4.7 mMol/L (3.7-5.1)
[2016-08-24 05:47] LABS: MAGNESIUM 2.8 mg/dL (1.3-2.6)
[2016-08-24 05:52] LABS: HEMATOCRIT 31.9 % (37.0-53.0); HEMOGLOBIN 9.5 g/dL (11.0-16.0); MCH 28.2 pg (27.0-34.0); MCHC 29.8 gm/dL (32.0-36.5); MCV 94.7 fl (83.0-98.0); MPV 9.7 fl (9.4-12.4); PLATELET COUNT 152 K/uL (150-450); RBC 3.37 M/uL (3.50-5.50); RDW-CV 15.1 % (11.9-14.6); WBC 8.4 K/uL (4.0-11.0)
[2016-08-24 06:30] LABS: BANDED NEUTROPHIL # 0.6 K/uL (0.0-0.1); BANDED NEUTROPHILS % 7 %; LYMPHOCYTE # 0.2 K/uL (0.8-4.0); LYMPHOCYTE % 2 %; MONOCYTE # 0.3 K/uL (0.0-1.0); SEGMENTED NEUTROPHIL # 7.4 K/uL (1.4-9.0); SEGMENTED NEUTROPHIL % 88 %
--- NOTE | 2016-08-24 16:34 | NUR ---
Significant Event: PT A/O X3, VSS, NO CARDIAC EVENTS THIS TOD. PT UP WITH SBA TO BR, UP TO CHAIR MOST OF TOD. FAMILY AT BEDSIDE OFF/ON THIS TOD. PT TOLERATE 6L NC, TRY TO TITRATE DOWN. PT UP TO SHOWER, CHANGE PORT-A-CATH DRESSING. CALL LIGHT AND PERSONAL ITEMS IN REACH. QUESTIONS/CONCERNS ADDRESSED THIS TOD. Follow up: ATTEMPT TO TITRATE DOWN O2, PULM QUALITY CONTROL ENGINEERING TECHNICIAN WOULD LIKE AT 5L OR LESS @ REST TO D/C HOME ON, CONTINUE TO [facility], CONTINUE PER PLAN OF CARE.
[2016-08-25 05:38] LABS: PROTIME 10.9 SECONDS (9.6-11.1)
--- NOTE | 2016-08-25 07:12 | NUR ---
Significant Event: BETAPACE INITIATED THIS SHIFT. REMAINS IN NSR ALL NIGHT. PT STATES HE IS FEELING BETTER AND BREATHING BETTER. FROM THE TIME HE WENT TO SLEEP HE REMAINED ON HIS HOME BIPAP ALL NIGHT WITH 8L BLED IN WITH OCCASIONAL DIPS BELOW 90. PT SLEEPING WELL WHEN HE DOES SLEEP. Follow up:
[2016-08-25 12:07] LABS: HEMATOCRIT 35.7 % (37.0-53.0); HEMOGLOBIN 10.6 g/dL (11.0-16.0); MCH 27.8 pg (27.0-34.0); MCHC 29.7 gm/dL (32.0-36.5); MCV 93.7 fl (83.0-98.0); MPV 9.6 fl (9.4-12.4); PLATELET COUNT 181 K/uL (150-450); RBC 3.81 M/uL (3.50-5.50); RDW-CV 15.1 % (11.9-14.6); WBC 8.3 K/uL (4.0-11.0)
[2016-08-25 12:22] LABS: ALBUMIN 3.5 gm/dL (3.5-5.0); BLOOD UREA NITROGEN 48 mg/dL (6-24); CHLORIDE 102 mMol/L (96-110); CREATININE 1.1 mg/dL (0.6-1.3); PHOSPHORUS 3.6 mg/dL (2.5-4.9); POTASSIUM 4.8 mMol/L (3.7-5.1); SODIUM 142 mMol/L (135-145)
[2016-08-25 12:27] LABS: ANION GAP 8.8 (10.0-19.0); CO2 36 mMol/L (22-32); ESTIMATED GFR (MDRD EQUATION) > 60
[2016-08-25 12:30] LABS: ABSOLUTE NEUTROPHIL CT (ANC) 8.1 K/uL (1.4-9.0); BANDED NEUTROPHIL # 0.2 K/uL (0.0-0.1); BANDED NEUTROPHILS % 3 %; LYMPHOCYTE # 0.2 K/uL (0.8-4.0); LYMPHOCYTE % 2 %; MONOCYTE # 0.1 K/uL (0.0-1.0); SEGMENTED NEUTROPHIL # 7.8 K/uL (1.4-9.0); SEGMENTED NEUTROPHIL % 94 %
[2016-08-25 14:59] LABS: BICARBONATE 40.9 mmol/L (18.0-23.0); PCO2 100 mmHg (35-45); PO2 105 mmHg (80-90)
[2016-08-25 15:02] LABS: BLOOD UREA NITROGEN 50 mg/dL (6-24); CALCIUM 8.9 mg/dL (8.5-10.5); CHLORIDE 102 mMol/L (96-110); CREATININE 1.1 mg/dL (0.6-1.3); ESTIMATED GFR (MDRD EQUATION) > 60; SODIUM 142 mMol/L (135-145)
[2016-08-25 15:05] LABS: CO2 35 mMol/L (22-32)
[2016-08-25 17:33] LABS: BICARBONATE 41.3 mmol/L (18.0-23.0)
[2016-08-25 17:37] LABS: PCO2 84 mmHg (35-45); PO2 83 mmHg (80-90)
--- NOTE | 2016-08-25 19:28 | NUR ---
Significant Event: PT A/O X3, VSS, PT UP WITH SBA TO BR AND CHAIR. PT TIRED THIS MORNING STATING DIDN'T SLEEP WELL, "TOSSED AND TURNED IN OUR UNCOMFORTABLE BEDS". PT TOLERATE NC AT 6L STATS >90 , TITRATE DOWN TO 5L TOLERATE STATS >90, PT UP TO CHAIR AND BR W/ SBA MULTIPLE TIMES AFTER LASIX, INCREASED FATIGUE AFTERNOON. DR GARAY ON FLOOR - ORDER FOR ABG AND BMP, START PT ON HOME BIPAP, CRIT LAB OF PCO2 [address] GARAY, [facility] AVAP ON PREVIOUS SETTINGS, REDRAW LAB AT 1700, CRIT LAB OF PCO2 84, ORDER TO CONTINUE AVAP, AND REDRAW ABG AT 1930. PT A/O Follow up:
[2016-08-25 19:38] LABS: PO2 92 mmHg (80-90)
[2016-08-25 19:43] LABS: PCO2 71 mmHg (35-45)
--- NOTE | 2016-08-26 04:32 | NUR ---
Significant Event: BETAPACE STARTED LAST NIGHT. PT REMAINED IN NS THROUGHOUT NIGHT WITH PRESSURES REMAINING WNL. DUE TO PT'S PCO2 BEING 100 YESTERDAY, ABG'S WERE DRAWN AND WENT DOWN TO 71. ABG'S ARE TO BE DRAWN THIS AM. PT REMAINED ON APAP AT CURRENT SETTINGS THROUGHOUT THE NIGHT. PT CAN EAT AND DRINK (WITHIN THE 1.5L RESTRICTION) AND TO WEAR 6L NC. NO BENZOS, NO NARCS, NO BENADRYL TO BE GIVEN D/T RESPIRATORY DEPRESSION. MOST C/O PAIN COMES FROM HEADACHE, POSSIBLY ASSOCIATED WITH HIGH PCO2 LEVELS. Follow up:
[2016-08-26 06:21] LABS: INR - (THERAPEUTIC) 1.1 (0.9-1.1); PROTIME 11.4 SECONDS (9.6-11.1)
[2016-08-26 06:50] LABS: ALBUMIN 3.3 gm/dL (3.5-5.0); BLOOD UREA NITROGEN 44 mg/dL (6-24); CALCIUM 8.9 mg/dL (8.5-10.5); CHLORIDE 102 mMol/L (96-110); ESTIMATED GFR (MDRD EQUATION) > 60; SODIUM 142 mMol/L (135-145)
[2016-08-26 06:52] LABS: ANION GAP 6.9 (10.0-19.0); CO2 37 mMol/L (22-32); POTASSIUM 3.9 mMol/L (3.7-5.1)
--- NOTE | 2016-08-26 16:15 | NUR ---
Significant Event: A/O. VSS on 4-6L/NC. Desats with activity, at times he does take a bit to recover. O2 up to 6L after activity. Daughter in room frequently adjusting O2, requested that if they think it needs to be changed to notify nursing - daughter agreeable. C/O headache relieved with norco. Pain meds and benzos restarted today. ABG in AM in patient stays on his own home bipap tonight per Dr Alba. Follow up: dismiss tomorrow
[2016-08-27 04:23] LABS: INR - (THERAPEUTIC) 1.1 (0.9-1.1); PROTIME 11.7 SECONDS (9.6-11.1)
--- NOTE | 2016-08-27 04:57 | NUR ---
Significant Event: Pt remained A&Ox3 throughout the night even while on home BiPAP. Pt c/o headache at the beginning of the night, but has not asked for anything since. Pt continues to diurese throughout the day and night with continued UO. Pt had 1625ml, measured overnight. Pt had difficulty with O2 sats on home BiPAP. RT placed nc under BiPAP and O2 sats remained stable since. RT to draw ABG this AM as pt remained on home BiPAP overnight. While awake, pt has been maintained on 4-6L. Plans for pt to d/c home today. Follow up:
[2016-08-27 05:23] LABS: BICARBONATE 49.7 mmol/L (18.0-23.0)
[2016-08-27 05:31] LABS: PCO2 84 mmHg (35-45); PO2 70 mmHg (80-90)
[2016-08-27 10:35] LABS: BICARBONATE 45.8 mmol/L (18.0-23.0)
[2016-08-27 10:39] LABS: PCO2 81 mmHg (35-45); PO2 97 mmHg (80-90)
[2016-08-27] MEDS ORDERED: DILTIAZEM 24HR120 MG PO (11:08)
[2016-08-27 11:28] LABS: ALBUMIN 3.5 gm/dL (3.5-5.0); ANION GAP 9.4 (10.0-19.0); BLOOD UREA NITROGEN 42 mg/dL (6-24); CHLORIDE 100 mMol/L (96-110); CREATININE 1.1 mg/dL (0.6-1.3); ESTIMATED GFR (MDRD EQUATION) > 60; MAGNESIUM 2.5 mg/dL (1.3-2.6); PHOSPHORUS 2.8 mg/dL (2.5-4.9); POTASSIUM 3.4 mMol/L (3.7-5.1); SODIUM 144 mMol/L (135-145)
[2016-08-27 11:29] LABS: CO2 38 mMol/L (22-32)
--- NOTE | 2016-08-27 17:10 | NUR ---
Significant Event: A/OX3, VSS ON 4L PER NC. TYLENOL GIVEN AT 1100 FOR COMPLAINTS OF A HEADACHE. NO BM TODAY. PT. GETS UP SBA IN ROOM & TO BATHROOM. PT. DID TAKE A LONG NAP THIS AFTERNOON. RIGHT CHEST PORT IS SALINE LOCKED, GETS GREAT BLOOD RETURN. PT. REMAINS ON A 1500mL FLUID RESTRICTION. LAST CO2 LEVEL FROM ABG'S @ 1000 WAS 81. 40mEq OF PO K+ GIVEN TODAY. POSSIBLE D/C TO HOME IN AM. Follow up: CONTINUE WITH POC.
--- NOTE | 2016-08-28 04:44 | NUR ---
Significant Event: Follow up: Pt remained A&Ox3. Remained on AVAP at night. VS stable throughout the night. O2 sats remained WNL; however pt still becomes dyspneic when changing positions, e.g. laying to sitting to standing. While awake, pt remains on 4L nc. Pt is x1 assist to bathroom and while walking. Received 7.5mg of coumadin yesterday. Gave 1 Percocet last night. Plan is for d/c today, but needs approval from insurance for AVAP settings on BiPAP.
[2016-08-28 05:06] LABS: INR - (THERAPEUTIC) 1.3 (0.9-1.1); PROTIME 14.4 SECONDS (9.6-11.1)
[2016-08-28] MEDS ORDERED: HUMIBID LA (MU600 MG PO (11:59)
[2016-08-28] MEDS ORDERED: ISORDIL10 MG PO (12:01)
[2016-08-28] MEDS ORDERED: BETAPACE (GENER80 MG PO (12:15)
[2016-08-28] MEDS ORDERED: COUMADIN ** IA5 MG PO (12:16)
--- NOTE | 2016-08-28 13:19 | NUR ---
d-dr pelon son i-nurse did teaching on all meds, info given on meds, student and instructor dcd port needle with heparin, 02 4liters and pt has his own tank, chf teaching was already done with fluid restriction 2liters encouraged, vital norms told of less than 60hr and less than 100. appts set up and cards given, rx given r-pt and family have no questions p-student and family took pt and his supplies out to car no problems
== END 2016-08-28 13:23 | disposition disaster alternative care site (69) | DRG 871 ==
LOC: GMED 08:32 → GPCU 09:45
PROVIDERS: Family Medicine; Internal Medicine; Internal Medicine Cardiovascular Disease; Internal Medicine Critical Care Medicine; ADMIT Internal Medicine
DX: A41.9 Sepsis, unspecified organism (principal); J18.9 Pneumonia, unspecified organism; J96.21 Acute and chronic respiratory failure with hypoxia; I50.33 Acute on chronic diastolic (congestive) heart failure; N17.9 Acute kidney failure, unspecified; I25.82 Chronic total occlusion of coronary artery; E87.3 Alkalosis; I48.91 Unspecified atrial fibrillation; J96.22 Acute and chronic respiratory failure with hypercapnia; J44.1 Chronic obstructive pulmonary disease with (acute) exacerbation; J44.0 Chronic obstructive pulmonary disease with (acute) lower respiratory infection; F41.9 Anxiety disorder, unspecified; Z85.01 Personal history of malignant neoplasm of esophagus; Z85.72 Personal history of non-Hodgkin lymphomas; Z87.891 Personal history of nicotine dependence; I25.10 Atherosclerotic heart disease of native coronary artery without angina pectoris; Z92.21 Personal history of antineoplastic chemotherapy; Z92.3 Personal history of irradiation; D64.9 Anemia, unspecified; I27.81 Cor pulmonale (chronic); Z79.01 Long term (current) use of anticoagulants
CPT/HCPCS: G0378; J0456; J0696; J1120; J1642; J1650; J1940; J1956; J2405; J2930; J7050; J7512; P9047; Q9967

== ENCOUNTER → 2016-09-02 | Outpatient (CLI) | payer MEDICARE, OTHER ==
[~2016-09-02] MED LIST changes: +ADVIL PM CAPLE1 EACH PO; +BENADRYL ALLERG25 MG PO; +BETAPACE (GENER80 MG PO; +COUMADIN ** IA5 MG PO; +DILTIAZEM 24HR120 MG PO; +DUONEB INH; +HUMIBID LA (MU600 MG PO; +INCRUSE ELLI62.5 MCG INH; +ISORDIL10 MG PO; +OXYGEN M-15 INH; +PULMICORT1 MG/2 ML INH; +THEODUR PO; +TYLENOL PM EX-1 EACH PO
== END | disposition disaster alternative care site (69) ==
LOC: GRAD 08-28 13:00
DX: C15.5 Malignant neoplasm of lower third of esophagus (principal); C83.07 Small cell B-cell lymphoma, spleen; J84.10 Pulmonary fibrosis, unspecified; I70.90 Unspecified atherosclerosis; K80.20 Calculus of gallbladder without cholecystitis without obstruction
CPT/HCPCS: Q9967

== ENCOUNTER → 2016-09-30 | Outpatient (CLI) | payer MEDICARE, OTHER ==
--- NOTE | ~2016-09-30 | PUL ---
PATIENT'S NAME: KELSEY HERNÁNDEZ [facility] AGE: 71 Y [address] ROOM: [place] [address] LOCATION: [facility] ADMIT DATE: 09/30/2016 Pulmonary DISCHARGE DATE: FAMILY PHYSICIAN: Frandy Sawyer MD ATTENDING PHYSICIAN: JACQUI RUSSO NAME OF PROCEDURE: Spirometry Report and ABG DATE OF PROCEDURE: September 30, 2016 TECH: JUANY Trinidad REASON FOR EXAM: COPD RESULTS: 1. FVC was 1.72 liters which is 36% of predicted and low, FEV1 was 0.66 liters which is 19% of predicted and low, and FEV1/FVC was 39% and low. The flow volume curve revealed very significant airflow limitation. After bronchodilator administration FVC increased to 1.92 liters which is a 12% increase and FEV1 increased to 0.8 liters which is a 20% increase. FEV1/FVC was 41%. 2. ABG pH was 7.28, PCO2 of 78, PO2 was 95 while on supplemental oxygen at 5 liters/minute. The base excess was 7.3. PHYSICIAN INTERPRETATION: The patient has very severe airflow limitation with a significant bronchodilator response. There is evidence of severe respiratory acidosis without adequate metabolic compensation and no hypoxia while on supplemental oxygen at 5 liters/minute. MD TANYA HERNANDEZ/ez /[id number] dtt: 10/03/16 1441 , JACQUI RUSSO dtd: 10/03/16 1335
[2016-09-30 13:37] LABS: BICARBONATE 36.7 mmol/L (18.0-23.0); PO2 95 mmHg (80-90)
[2016-09-30 13:54] LABS: PCO2 78 mmHg (35-45)
== END | disposition disaster alternative care site (69) ==
LOC: GRTH 13:00
PROVIDERS: Internal Medicine Critical Care Medicine
DX: J44.9 Chronic obstructive pulmonary disease, unspecified (principal); J96.10 Chronic respiratory failure, unspecified whether with hypoxia or hypercapnia; E87.2 Acidosis

== ENCOUNTER → 2016-10-07 | Outpatient (CLI) | payer MEDICARE, OTHER ==
[2016-10-07 12:09] LABS: ALBUMIN 3.3 gm/dL (3.5-5.0); ANION GAP 6.6 (10.0-19.0); CALCIUM 8.2 mg/dL (8.5-10.5); CREATININE 1.3 mg/dL (0.6-1.3); PHOSPHORUS 2.2 mg/dL (2.5-4.9); POTASSIUM 3.6 mMol/L (3.7-5.1)
== END | disposition disaster alternative care site (69) ==
LOC: LHHCN 11:41
PROVIDERS: Internal Medicine Critical Care Medicine
DX: I11.0 Hypertensive heart disease with heart failure (principal); I50.22 Chronic systolic (congestive) heart failure; J44.9 Chronic obstructive pulmonary disease, unspecified

== ENCOUNTER 2016-10-13 11:11 | Inpatient (IN) | payer MEDICARE, OTHER ==
[~2016-10-13] VITALS: Ht 182.9 cm; Wt 114.0 kg
--- NOTE | ~2016-10-13 | ER ---
PATIENT'S NAME: KELSEY HERNÁNDEZ [facility] AGE: 71 Y [address] ROOM: [place] [address] LOCATION: [facility] ADMIT DATE: 10/13/2016 ER/Outpatient Report DISCHARGE DATE: FAMILY PHYSICIAN: Frandy Sawyer MD ATTENDING PHYSICIAN: MANJIT ARCEHR Time of Arrival: 1115 hours. Time of Evaluation: 1115 hours. CHIEF COMPLAINT: Fever and shortness of breath. HISTORY OF PRESENT ILLNESS: The patient arrived per EMS. They started an IV, gave him an albuterol treatment and a dose of Solu-Medrol. He called them because he was having difficulty breathing, and his O2 sats were down in the 70s even with his oxygen on at 5 L per nasal cannula. He has a long history of COPD. He states he has been getting ill over the last 2 days. He has had chills, shortness of breath, cough, generalized back discomfort. He denies having any chest pain. He has not had any nausea. He has not had any vomiting. He states his oxygen at home has been staying between 5 and 6 L per nasal cannula. EMS reported his temp of being 104. He has not taken anything for his temp. ALLERGIES: HE HAS NO KNOWN ALLERGIES. CURRENT MEDICATIONS: On his chart and reviewed by me. PAST MEDICAL HISTORY: Includes oxygen-dependent COPD, congestive heart failure, heart disease, history reports that he has 100% occlusion of the LAD, and they attempted to do a stent in June of 2016 but were unsuccessful. He has had a history of esophageal cancer and lymphoma. He is steroid dependent. He has ulcers on the left lower extremities, that are healing. PAST SURGICAL HISTORY: Include femoral bypass, cardiac cath. SOCIAL HISTORY: He quit smoking in 2010. He quit drinking alcohol in 2010. Denies the use of drugs. REVIEW OF SYSTEMS: Negative other than those mentioned in the HPI. PATIENT'S NAME: KELSEY HERNÁNDEZ [facility] AGE: 71 Y [address] ROOM: [place] [address] LOCATION: [facility] ADMIT DATE: 10/13/2016 ER/Outpatient Report DISCHARGE DATE: FAMILY PHYSICIAN: Frandy Sawyer MD ATTENDING PHYSICIAN: MANJIT ARCHER PHYSICAL EXAMINATION: VITAL SIGNS: He states he is 6 feet tall, he weighs 114.1 kg, blood pressure is 120/67, pulse of 119, respirations 24, temp is 102.7 tympanic, O2 saturation is 89% on room air. GENERAL: He is awake, alert, and oriented x4. He is able to talk in full sentences. SKIN: [place], warm, and dry. LUNGS: Lung sounds are coarse throughout. HEART: Regular rate and rhythm. ABDOMEN: Round. Slightly distended. Bowel sounds are present. EXTREMITIES: He moves all extremities strongly and equally. He does have some generalized pitting edema of the lower extremities. LABORATORY DATA AND X-RAYS: Initial EKG was completed. It shows a sinus tach. Heart rate of 110 with PACs. Lab work was drawn. CBC shows a white count of 6.2. His pro-time is 21.3 with an INR of 2.01. His magnesium was 2. Venous pH is 7.37. Lactate is 1. proBNP is 890. Chem panel: Sodium is 141, potassium is 3.1, chloride of 101, his CO2 is 37 with an anion gap of 6.1, his BUN is 20 with a creatinine of 1.1. Cardiac enzymes: CPK is 54, CK-MB is 1.6, and troponin is 0.127. Procalcitonin is 0.05. Chest x-ray was completed. It shows bibasilar infiltrates both sides, awaiting radiology report. EMERGENCY DEPARTMENT COURSE: The patient was given Tylenol 1000 mg p.o. and a DuoNeb treatment, which did make him feel as though he could breathe a little bit easier, and his O2 sats remained between 90 and 92. Upon the patient's return from the x-ray department, he did go into a rhythm that looks like 2:1 atrial flutter with a rapid ventricular response. The patient's chart was reviewed with Dr. Nieves. We did contact Dr. Mcfarlane to discuss the patient. She recommended treating the patient with amiodarone as his blood pressure had dropped to 108/60. Amiodarone 150 mg over 10-minute period bolus was given, and then a drip was started at 1 mg/minute. Dr. Archer was contacted. He did come down and see the patient. He wrote orders on the patient and will make arrangements for the patient to be admitted. IMPRESSION: 1. Acute on chronic exacerbation of chronic obstructive pulmonary disease with hypoxia. 2. Atrial flutter with rapid ventricular response. 3. Cough with bibasilar infiltrates of the lungs. PLAN: The patient to be in observation for Dr. Archer. The patient and family are PATIENT'S NAME: KELSEY HERNÁNDEZ [facility] AGE: 71 Y [address] ROOM: [place] [address] LOCATION: [facility] ADMIT DATE: 10/13/2016 ER/Outpatient Report DISCHARGE DATE: FAMILY PHYSICIAN: Frandy Sawyer MD ATTENDING PHYSICIAN: MANJIT ARCHER well aware of plan of care. PAT DELGADO APRN FOR MD BJ EPSTEIN/modl /[id number] d: 10/13/[id number] t: 10/16/16 1817, OUTPATIENT REPORT
--- NOTE | ~2016-10-13 | HP ---
PATIENT'S NAME: KELSEY HERNÁNDEZ [facility] AGE: 71 Y [address] ROOM: [place] [address] LOCATION: [facility]PCU ADMIT DATE: 10/13/2016 History & Physical DISCHARGE DATE: FAMILY PHYSICIAN: Frandy Sawyer MD ATTENDING PHYSICIAN: Lorne Mcmahan DATE OF SERVICE: CHIEF COMPLAINT: Worsening shortness of breath as well as generalized weakness. Also, sensation of chills and feverish and shivering. HISTORY OF PRESENT ILLNESS: This is a 71-year-old male who says that this morning he woke up with a sensation of chills and shivering, and feeling feverish, but he did not take temperature. He also has been complaining of worsening shortness of breath when he woke up this morning. He denies chest pain or any cough. He also feels what he describes as a generalized weakness. Because of all these symptoms, the patient was brought here for evaluation. On the way here, the patient's temperature was found to be 100.4 Fahrenheit. In the emergency room, the patient was also found to be in atrial flutter with RVR heart rate in the 140s without chest pain. REVIEW OF SYSTEMS: As mentioned in history of present illness. All other systems reviewed and negative except those mentioned in history of present illness. PAST MEDICAL HISTORY: 1. Hearing loss in the right ear. 2. Coronary artery disease with 100% occlusion of the LAD followed by Dr. Xie, and has 2 attempts at the cardiac catheterization without any success given that he was 100% occluded and cannot do open heart surgery bypass given the patient's underlying poor lung function. The patient is scheduled to see someone in [facility] sometime in October or December this year for further evaluation for open heart surgery. The patient has not decided if he wants to proceed with further evaluation or not. 3. History of esophageal cancer, status post radiation and chemotherapy and already cured. 4. History of lymphoma followed by Dr. Ramirez, status post chemotherapy and currently in remission. 5. Chronic left lower extremity venous stasis ulcer. PATIENT'S NAME: KELSEY HERNÁNDEZ [facility] AGE: 71 Y [address] ROOM: [address] [address] LOCATION: GPCU ADMIT DATE: 10/13/2016 History & Physical DISCHARGE DATE: FAMILY PHYSICIAN: Frandy Sawyer MD ATTENDING PHYSICIAN: Lorne Mcmahan 6. COPD, on home oxygen 5 to 6 L 20/01. Also, he uses BiPAP every night. 7. Most recent echo was performed on August 23, 2016, showed EF of 60% with normal wall motion and mild mitral regurgitation. Mild tricuspid regurgitation. Mild pulmonary hypertension at 36 mmHg of the pulmonary pressure. 8. Pulmonary function test. Last one was done on September 30, 2016, showed very severe airflow limitation with a significant bronchodilator response. There is evidence of a severe respiratory acidosis without adequate metabolic compensation. No hypoxia while the patient is on supplemental oxygen at 5 L/minute. ALLERGIES: NO KNOWN DRUG ALLERGIES. HOME MEDICATIONS: Currently is being reconciled. SOCIAL HISTORY: The patient was a heavy smoker of cigarette, he quit in year 2010. No alcohol and no illegal drug use. FAMILY HISTORY: Father from lung cancer at advanced age. The patient's mother had medical problems, but he could not remember which ones. PAST SURGICAL HISTORY: Status post bypass of the right lower extremity of the femoral popliteal vein in the past. PHYSICAL EXAMINATION: VITAL SIGNS: At the time of my dictation, temperature 98.5, respirations 16, blood pressure 130/80, heart rate at 85, and saturation 94% on 5 L nasal cannula. GENERAL APPEARANCE: No acute distress. Alert and oriented x3. HEENT: Pupils equally round and reactive to light. Extraocular muscles intact. Nasal turbinates are normal bilaterally. Moist oral mucosa. NECK: No JVD. No cervical lymphadenopathy. CARDIOVASCULAR: Irregularly irregular rate and rhythm. No murmur. No rubs. No gallops. RESPIRATORY: Decreased breath sounds diffusely. Some occasional wheezing diffusely. No crackles, no rales, no rhonchi. ABDOMEN: Obese, soft, nontender, nondistended, normal bowel sounds, no hepatosplenomegaly. Bowel sounds are present. EXTREMITIES: Edema in bilateral lower extremities, which is chronic at baseline. PATIENT'S NAME: KELSEY HERNÁNDEZ [facility] AGE: 71 Y [address] ROOM: [place] [address] LOCATION: [facility]PCU ADMIT DATE: 10/13/2016 History & Physical DISCHARGE DATE: FAMILY PHYSICIAN: Frandy Sawyer MD ATTENDING PHYSICIAN: Lorne Mcmahan SKIN: No cyanosis. MUSCULOSKELETAL: No joint pain. No muscle pain. NEUROLOGICAL: Grossly nonfocal. LABORATORY DATA: Venous blood gas performed on 5 L nasal cannula showed pH of 7.37, pCO2 of 70, bicarbonate 40.5, and saturation 90%. Lactic acid 1.0. Troponin 0.127. White blood cells 6.2, hemoglobin 11.4, hematocrit 38.9, MCV 90.3, and platelets 182. Glucose 120, BUN 20, creatinine 1.1, sodium 141, potassium 3.1, chloride 101, CO2 of 27, and calcium 8.2. Total protein 6.2, albumin 3.2, AST 17, ALT 17, alkaline phosphatase 68, total bilirubin 0.6, GFR more than 60, and anion gap 6.1. INR 2.01. CK-MB 1.6. IMAGING STUDIES: 1. Chest x-ray on admission show patchy left infrahilar and left base opacity consistent with infiltrate and atelectasis. 2. EKG on admission first one show sinus tachycardia with PAC, heart rate 111, [place] 153, QRS 110, and QTc 411. No acute ischemic changes. 3. Second EKG performed at 11:29 a.m. on admission showed atrial flutter with RVR heart rate 149. Compared to the prior EKG back in 2016August 26 shows sinus rhythm, heart rate of 78 without acute ischemic changes. He does have a Q-wave in the inferior leads at that time. ASSESSMENT AND PLAN: 1. Regarding his acute on chronic hypoxemic, hypercapnic respiratory failure: X-ray showed left lower lung infiltrate. We will treat him for chronic obstructive pulmonary disease exacerbation with possible pneumonia. We will treat him with p.o. Levaquin and nebulization with Xopenex q.2 hours p.r.n. Steroids with Solu-Medrol IV 125 mg now and 40 mg p.o. prednisone starting tomorrow. We will check influenza and also check a urine antigen for Legionella and pneumococcal. Oxygen nasal cannula to keep saturation between 90% to 94%. At nighttime, we will continue his BiPAP with home setting every night. We will do sputum culture Gram stain if he has sputum. Currently, the patient denies any cough. We will be checking the influenza antigen for a nasal swab. Check another chest x-ray in the morning. 2. Regarding his atrial flutter with rapid ventricular response: This is from the hypokalemia and also from chronic obstructive pulmonary disease exacerbation from hypoxia. EKG, not ischemic. CK-MB, CPK are normal, therefore, is not acute coronary syndrome. Cardiology has already been consulted. Currently is on amiodarone bolus followed by drip. We will transition the amiodarone drip to the home dose of sotalol and also home Cardizem. We will cut down the Cardizem from 120 mg daily to 30 mg q.6 hours. We will do the overlapping. Start sotalol home dose, and then PATIENT'S NAME: KELSEY HERNÁNDEZ [facility] AGE: 71 Y [address] ROOM: [address] [address] [facility] ADMIT DATE: 10/13/2016 History & Physical DISCHARGE DATE: FAMILY PHYSICIAN: Frandy Sawyer MD ATTENDING PHYSICIAN: Lorne Mcmahan stop the IV amiodarone drip 1 hour after getting the sotalol and Cardizem. Serial cardiac enzymes. EKG in the morning. Cardiology is following. I have formulated the plan with on-call Bit Tapper Dr. Mcfarlane. 3. Regarding his probable subclinical hyperthyroidism: I will check a TSH, and free T4, free T3. If it is consistent with a subclinical hyperthyroidism, then this should be treated to prevent him from going into atrial fibrillation and atrial flutter in the future. Continue Coumadin home dose and titrate and dosing by pharmacy for INR 2 to 3. Pulmonary embolism less likely given that the INR is already therapeutic on admission. Check labs in the morning. Blood culture already obtained. I will not check the urinalysis or urine culture given that the patient does not have any urinary symptoms. 4. Regarding his coronary disease: Not in acute coronary syndrome. Outpatient followup with Sangeetha Tolono in the future for further evaluation for possible open heart surgery. 5. We will also check a magnesium to keep above 2. Potassium above 4. 6. Hypokalemia: We will replace p.o. and IV. 7. DVT prophylaxis: He is already on Coumadin. INR is already therapeutic. 8. Code status: He is a do not intubate, but not do not resuscitate. Time spent on the day of admission 50 minutes including chart review, interviewing the patient, addressing all the questions and concerns that the patient had, and going over the plan of care with the patient and the patient's daughter at the bedside. All questions and concerns were answered to their satisfaction. Further plan of care will be decided by the hospitalist taking over the care at 8 AM on 10/14/16. Patient and family members are in agreement with the plan. MD JUANCARLOS RECIO/miguel /[id number] D: [id number] T: [id number] HISTORY & PHYSICAL
[~2016-10-13 11:11] MED LIST changes: -DUONEB INH; -OXYGEN M-15 INH; -PULMICORT1 MG/2 ML INH; -THEODUR PO
[2016-10-13 11:59] LABS: BASOPHIL % 0.5 %; EOSINOPHIL # 0.1 K/uL (0.0-0.5); EOSINOPHIL % 2.3 %; HEMATOCRIT 38.9 % (37.0-53.0); HEMOGLOBIN 11.4 g/dL (11.0-16.0); IMMATURE GRANULOCYTE % 0.5 %; LYMPHOCYTE # 0.5 K/uL (0.8-4.0); LYMPHOCYTE % 8.4 %; MCH 26.5 pg (27.0-34.0); MCHC 29.3 gm/dL (32.0-36.5); MCV 90.3 fl (83.0-98.0); MONOCYTE # 0.7 K/uL (0.0-1.0); MONOCYTE % 11.5 %; MPV 9.3 fl (9.4-12.4); NEUTROPHIL # (ANC) 4.7 K/uL (1.4-9.0); NEUTROPHIL % 76.8 %; NRBC % 0 /100WBC (0-0.00); PLATELET COUNT 182 K/uL (150-450); RBC 4.31 M/uL (3.50-5.50); RDW-CV 15.3 % (11.9-14.6); WBC 6.2 K/uL (4.0-11.0)
[2016-10-13 12:08] LABS: INR - (THERAPEUTIC) 2.01 (0.92-1.07); PROTIME 21.3 SECONDS (9.8-11.4)
[2016-10-13 12:11] LABS: PTT 30 SECONDS (25-32)
[2016-10-13 12:19] LABS: ALBUMIN 3.2 gm/dL (3.5-5.0); ALK PHOS 68 IU/L (33-138); ALT 17 IU/L (12-78); AST 17 IU/L (10-40); BLOOD UREA NITROGEN 20 mg/dL (6-24); CALCIUM 8.2 mg/dL (8.5-10.5); CHLORIDE 101 mMol/L (96-110); CREATININE 1.1 mg/dL (0.6-1.3); ESTIMATED GFR (MDRD EQUATION) > 60; POTASSIUM 3.1 mMol/L (3.7-5.1); SODIUM 141 mMol/L (135-145); TOTAL PROTEIN 6.2 g/dL (6.0-8.4)
[2016-10-13 12:21] LABS: ANION GAP 6.1 (10.0-19.0); CO2 37 mMol/L (22-32); TOTAL BILIRUBIN 0.6 mg/dL (0.0-1.5)
[2016-10-13 14:17] LABS: BICARBONATE 40.5 mmol/L (18.0-23.0); PCO2 70 mmHg (35-45); PO2 60 mmHg (80-90)
[2016-10-13] MEDS ORDERED: OXYGEN M-15 INH (19:26)
[2016-10-13] MEDS ORDERED: PULMICORT1 MG/2 ML INH (19:27)
[2016-10-13] MEDS ORDERED: THEODUR PO (19:29)
[2016-10-13] MEDS ORDERED: DUONEB INH (19:29)
[2016-10-13 21:20] LABS: CREATININE 1.2 mg/dL (0.6-1.3); MAGNESIUM 2.2 mg/dL (1.8-2.6)
--- NOTE | 2016-10-14 07:04 | NUR ---
Significant Event: Patient alert and oriented x3. HR 50s with sleep. Up to 80s while awake. On 4-6L O2 per NC while awake. Home BiPap at night. IV to left hand saline locked. Patient requested IV to right hand be removed because it bothered him. Stated: "I'd rather be poked again than to have this one here." Up in room with stand-by assist. Refused the bed. Stayed up in the chair all night. Slept little. Morning dose of Cardizem held per Dr. Medeiros for HR in 50s. 2-3+ edema to bilateral ankles and feet. Dressings to right calf wound and left forearm C/D/I. Complained of headache at beginning of shift. Home dose Percocet ordered per Dr. Medeiros. Given with relief. Calm and cooperative with all cares. Follow up: Will continue to monitor HR and respiratory function.
[2016-10-14 07:52] LABS: HEMATOCRIT 36.9 % (37.0-53.0); HEMOGLOBIN 10.6 g/dL (11.0-16.0); MCH 26.2 pg (27.0-34.0); MCHC 28.7 gm/dL (32.0-36.5); MCV 91.3 fl (83.0-98.0); MPV 9.9 fl (9.4-12.4); RBC 4.04 M/uL (3.50-5.50); RDW-CV 15.3 % (11.9-14.6); WBC 7.1 K/uL (4.0-11.0)
[2016-10-14 08:00] LABS: INR - (THERAPEUTIC) 2.43 (0.92-1.07); PROTIME 25.7 SECONDS (9.8-11.4)
[2016-10-14 08:10] LABS: BICARBONATE 34.2 mmol/L (18.0-23.0); PCO2 62 mmHg (35-45); PO2 63 mmHg (80-90)
[2016-10-14 08:10] LABS: BLOOD UREA NITROGEN 21 mg/dL (6-24); CALCIUM 8.2 mg/dL (8.5-10.5); CHLORIDE 103 mMol/L (96-110); CPK 54 IU/L (35-332); ESTIMATED GFR (MDRD EQUATION) > 60; MAGNESIUM 2.3 mg/dL (1.8-2.6); PHOSPHORUS 2.6 mg/dL (2.5-4.9); SODIUM 142 mMol/L (135-145)
[2016-10-14 08:12] LABS: CO2 35 mMol/L (22-32)
[2016-10-14] MEDS ORDERED: DELTASONE10 MG PO (10:41)
--- NOTE | 2016-10-14 13:30 | NUR ---
Introduced self and role of care management to patient and his . They live in [place]. He plans home later today or tomorrow. will assist as needed at home. He uses O2 at home and has a cane he uses as needed. Says their bedrooms are upstairs and he has looked into a stair lift. He asks if insurance will cover and I told him no. Told him he could check with [facility] or [facility] to see if there are funds that could assist with the stair lift. He does not anticipate discharge needs. Will follow.
--- NOTE | 2016-10-14 15:19 | NUR ---
Significant Event: AOx3, SBP 110s-140s, tachypneic, requires 3-4 L at rest and 6 L when up to keep O2 sats >90%. Dyspneic with activity and requires time to recover after walking. Lungs dim throughout with wheezes, also a non-productive cough. Urine sample sent for antigens as ordered. Ambulates with minimal family assist and is steady on feet. Pleasant and cooperative with cares. Follow up: Cardiology consult was cancelled. Per plan of care.
[2016-10-15 04:32] LABS: HEMATOCRIT 35.2 % (37.0-53.0); HEMOGLOBIN 10.1 g/dL (11.0-16.0); MCH 26.4 pg (27.0-34.0); MCHC 28.7 gm/dL (32.0-36.5); MCV 91.9 fl (83.0-98.0); MPV 10.2 fl (9.4-12.4); PLATELET COUNT 170 K/uL (150-450); RBC 3.83 M/uL (3.50-5.50); RDW-CV 15.2 % (11.9-14.6); WBC 6.7 K/uL (4.0-11.0)
[2016-10-15 04:43] LABS: INR - (THERAPEUTIC) 2.82 (0.92-1.07); PROTIME 29.9 SECONDS (9.8-11.4)
[2016-10-15 04:46] LABS: ALBUMIN 2.9 gm/dL (3.5-5.0); CALCIUM 8.6 mg/dL (8.5-10.5); CHLORIDE 104 mMol/L (96-110); CREATININE 1.1 mg/dL (0.6-1.3); ESTIMATED GFR (MDRD EQUATION) > 60; MAGNESIUM 2.4 mg/dL (1.8-2.6); POTASSIUM 4.5 mMol/L (3.7-5.1); SODIUM 143 mMol/L (135-145)
[2016-10-15 04:54] LABS: ANION GAP 7.5 (10.0-19.0); BLOOD UREA NITROGEN 32 mg/dL (6-24); CO2 36 mMol/L (22-32)
--- NOTE | 2016-10-15 05:03 | NUR ---
Significant Event: A/0X3. SBA UP TO BR. TURNS SELF. AFEBRILE. VSS ON 5-6L. HOME CPAP AT HS. PATIENT DESATS QUICKLY WITH MINIMAL ACTIVITY. IV TO L) HAND SL. PERCOCET GIVEN X1. LAST DOSE WAS AT 2207. PATIENT WAS ABLE TO FIND RELIEF AND NO C/O OF PAIN SINCE. ALSO GAVE PRN XANAX PER PATIENT REQUEST. VOIDED 100 MLS. NO BM THIS SHIFT. Follow up:CONTINUE WITH PLAN OF CARE.
[2016-10-15 05:14] LABS: ABSOLUTE NEUTROPHIL CT (ANC) 5.8 K/uL (1.4-9.0); BANDED NEUTROPHIL # 0.9 K/uL (0.0-0.1); BANDED NEUTROPHILS % 14 %; LYMPHOCYTE # 0.4 K/uL (0.8-4.0); LYMPHOCYTE % 6 %; MONOCYTE # 0.5 K/uL (0.0-1.0); SEGMENTED NEUTROPHIL # 4.9 K/uL (1.4-9.0); SEGMENTED NEUTROPHIL % 73 %
[2016-10-15] MEDS ORDERED: LEVAQUIN 750 M750 MG PO (15:12)
--- NOTE | 2016-10-15 15:21 | NUR ---
Talked with patient and he plans home today. He has been on [facility] services and wants them resumed. Denies other discharge needs at this time. Discharge information faxed to Daisy at [facility] and called and spoke with Daisy.
--- NOTE | 2016-10-15 16:25 | NUR ---
d-dr bird dc i-02 93% on his tank before dc, xanax given as pt anxious alittle, iv dcd ok, bp ok and hr 63 gave his isorbide and coumadin also. Pt took his supplies/cpap. Pt here and goes thru teaching, info given on levaquin and rx given for it and pred, appts set up, card given for dr Alba, 2.5mg coumadin given today then 5mg start analilia payneta took pt out to car per wc p-dc
== END 2016-10-15 15:30 | disposition disaster alternative care site (69) | DRG 190 ==
LOC: GMED 11:11 → GPCU 15:44
PROVIDERS: Family Medicine; Nurse Practitioner Family; ADMIT Internal Medicine
DX: J44.1 Chronic obstructive pulmonary disease with (acute) exacerbation (principal); J96.21 Acute and chronic respiratory failure with hypoxia; I47.2 Ventricular tachycardia; I48.92 Unspecified atrial flutter; J44.9 Chronic obstructive pulmonary disease, unspecified; E05.90 Thyrotoxicosis, unspecified without thyrotoxic crisis or storm; E87.6 Hypokalemia; I25.10 Atherosclerotic heart disease of native coronary artery without angina pectoris; Z92.3 Personal history of irradiation; Z85.01 Personal history of malignant neoplasm of esophagus; I83.029 Varicose veins of left lower extremity with ulcer of unspecified site; Z99.81 Dependence on supplemental oxygen; Z87.891 Personal history of nicotine dependence
CPT/HCPCS: G0237; J0282; J2930; J3480; J7030; J7512; J7612

== ENCOUNTER → 2016-10-13 | Outpatient (CLI) | payer MEDICARE, OTHER | END | disposition disaster alternative care site (69) | LOC: GAMB 10:36 | DX: R06.9 Unspecified abnormalities of breathing (principal); J44.9 Chronic obstructive pulmonary disease, unspecified; I51.9 Heart disease, unspecified; Z79.899 Other long term (current) drug therapy | CPT/HCPCS: A0422; A0425; A0427; J2930; J7030 ==

== ENCOUNTER → 2016-10-22 | Outpatient (CLI) | payer MEDICARE, OTHER ==
[~2016-10-22] MED LIST changes: +DUONEB INH; +OXYGEN M-15 INH; +PULMICORT1 MG/2 ML INH; +THEODUR PO
[2016-10-22 13:01] LABS: ALBUMIN 3.1 gm/dL (3.5-5.0); BLOOD UREA NITROGEN 23 mg/dL (6-24); CALCIUM 8.3 mg/dL (8.5-10.5); CHLORIDE 100 mMol/L (96-110); ESTIMATED GFR (MDRD EQUATION) > 60; PHOSPHORUS 3.2 mg/dL (2.5-4.9); SODIUM 142 mMol/L (135-145)
[2016-10-22 13:02] LABS: ANION GAP 7.8 (10.0-19.0); CO2 39 mMol/L (22-32); POTASSIUM 4.8 mMol/L (3.7-5.1)
== END ==
LOC: LHHCN 12:29
PROVIDERS: Internal Medicine Critical Care Medicine
DX: I50.20 Unspecified systolic (congestive) heart failure (principal); E87.3 Alkalosis